=== PATIENT | female | born 1955 | race Caucasian/White ===

== ENCOUNTER 2021-01-23 13:34 | Inpatient (IN) ==
[2021-01-23] MEDS ORDERED: *HR* HYDROcodone/Acet 5/325 mg TABLET PO PRN (16:40)
[2021-01-23] MEDS ORDERED: *HR* OxyCODONE Immed Rel 5 MG TABLET PO PRN (16:40)
[2021-01-23] MEDS ORDERED: Acetaminophen 325 MG TABLET PO PRN (16:40)
[2021-01-23] MEDS ORDERED: Ondansetron 4 MG/2 ML VIAL IVP PRN (16:40)
[2021-01-23] MEDS ORDERED: Nicotine 2 MG GUM BC PRN (17:29)
[2021-01-23] MEDS: amLODIPine 5 MG TABLET PO SCH (17:44)
[2021-01-23] MEDS: Nicotine 21 MG PATCH.TD24 TD SCH (17:44)
[2021-01-23] MEDS: Piperacillin/Tazobactam 3.375 GM in 0.9 % Sodium Chloride Mini Bag 100 ML IVPB SCH (23:52)
[2021-01-24 02:58] LABS: Hematocrit 35.2 % (35.3-44.9); Hemoglobin 11.4 g/dL (11.5-15.4); Mean Corpuscular HGB Conc 32.4 g/dL (31.6-35.5); Mean Corpuscular Hemoglobin 29.2 pg (28.0-33.3); Mean Platelet Volume 10.8 fL (9.4-12.4); Platelet Count 217 K/mcL (140-400); Red Blood Count 3.91 M/mcL (3.82-4.97); Red Cell Distribution Width 13.5 % (11.5-14.5); White Blood Count 9.3 K/mcL (4.3-11.1)
[2021-01-24 03:22] LABS: BUN/Creatinine Ratio 12 (6-26); Blood Urea Nitrogen 11 mg/dL (8-23); Calcium 8.3 mg/dL (8.6-10.3); Carbon Dioxide 25 mEq/L (23-29); Chloride 104 mEq/L (98-107); Glucose 90 mg/dL (70-105); Osmolality,Calculated 281 (280-300); Potassium 4.1 mEq/L (3.5-5.1); Sodium 136 mEq/L (136-145); eGFR For African Americans > 60 (> 60); eGFR For Non-African Americans > 60 (> 60)
[2021-01-24] MEDS ORDERED: Ringers Solution, Lactated 1,000 ML IVC SCH (08:00)
[2021-01-24] MEDS: amLODIPine 5 MG TABLET PO SCH (09:13)
[2021-01-24] MEDS: Piperacillin/Tazobactam 3.375 GM in 0.9 % Sodium Chloride Mini Bag 100 ML IVPB SCH ×2 (09:13→16:46)
[2021-01-24] MEDS: Nicotine 21 MG PATCH.TD24 TD SCH ×2 (09:14→16:47)
[2021-01-24] MEDS ORDERED: Piperacillin/Tazobactam 3.375 GM VIAL ONE (22:49)
[2021-01-25] MEDS: Piperacillin/Tazobactam 3.375 GM in 0.9 % Sodium Chloride Mini Bag 100 ML IVPB SCH (00:03)
[2021-01-25 01:08] LABS: Basophils # 0.1 K/mcL (0.0-0.2); Basophils % 0.8 %; Eosinophils # 0.4 K/mcL (0.0-0.6); Eosinophils % 5.1 %; Hematocrit 35.5 % (35.3-44.9); Hemoglobin 11.6 g/dL (11.5-15.4); Immature Granulocytes % 0.3 % (0-4); Lymphocytes # 2.3 K/mcL (0.6-4.6); Lymphocytes % 29.4 %; Mean Corpuscular HGB Conc 32.7 g/dL (31.6-35.5); Mean Corpuscular Volume 88.8 fL (83.0-100.0); Mean Platelet Volume 10.9 fL (9.4-12.4); Monocytes # 0.5 K/mcL (0.0-1.3); Monocytes % 6.3 %; Neutrophils # 4.6 K/mcL (1.6-8.9); Platelet Count 225 K/mcL (140-400); Red Cell Distribution Width 13.3 % (11.5-14.5); Segmented Neutrophils % 58.1 %; White Blood Count 7.9 K/mcL (4.3-11.1)
[2021-01-25 01:23] LABS: Alanine Aminotransferase 12 Units/L (7-52); Albumin 3.7 g/dL (3.5-5.7); Albumin/Globulin Ratio 1.2 (1.1-2.2); Alkaline Phosphatase 72 Units/L (34-104); Aspartate Amino Transferase 12 Units/L (13-39); BUN/Creatinine Ratio 9 (6-26); Bilirubin,Direct 0.1 mg/dL (0.0-0.2); Bilirubin,Indirect 0.2 mg/dL (0.0-1.0); Bilirubin,Total 0.3 mg/dL (0.3-1.0); Blood Urea Nitrogen 9 mg/dL (8-23); Calcium 8.5 mg/dL (8.6-10.3); Carbon Dioxide 26 mEq/L (23-29); Chloride 103 mEq/L (98-107); Globulin 3.2 g/dL (2.4-3.5); Glucose 131 mg/dL (70-105); Osmolality,Calculated 286 (280-300); Potassium 3.6 mEq/L (3.5-5.1); Sodium 138 mEq/L (136-145); Total Protein 6.9 g/dL (6.4-8.9); eGFR For African Americans > 60 (> 60); eGFR For Non-African Americans 58 (> 60)
[2021-01-25] MEDS: metroNIDAZOLE 500 MG TABLET PO SCH ×3 (13:46→20:58)
[2021-01-26 07:20] VITALS: BP 142/63
[2021-01-26] MEDS: Piperacillin/Tazobactam 3.375 GM in 0.9 % Sodium Chloride Mini Bag 100 ML IVPB SCH (07:21)
[2021-01-26] MEDS: metroNIDAZOLE 500 MG TABLET PO SCH (07:47)
[2021-01-26] MEDS: Nicotine 21 MG PATCH.TD24 TD SCH (07:47)
== END 2021-01-26 09:34 | disposition home or self-care (01) | DRG 720 ==
LOC: 3ANU → SUATTDRO 15:52
PROVIDERS: ADMIT General Practice; ATTEND Internal Medicine

== ENCOUNTER 2021-03-21 15:59 | Inpatient (IN) ==
[2021-03-21] MEDS ORDERED: Ondansetron ODT 4 MG TAB.RAPDIS SL PRN (18:55)
[2021-03-21] MEDS ORDERED: Naloxone 0.4 MG/ML INJ IVP PRN (18:55)
[2021-03-21] MEDS ORDERED: Acetaminophen 325 MG TABLET PO PRN (18:55)
[2021-03-21] MEDS ORDERED: *HR* Heparin 5,000 UNIT/ML VIAL IVP PRN ×2 (18:58)
[2021-03-21] MEDS ORDERED: *HR* Heparin 5,000 UNIT/ML VIAL IVP ONE (18:58)
[2021-03-21 19:35] LABS: Hematocrit 37.3 % (35.3-44.9); Hemoglobin 12.1 g/dL (11.5-15.4); Mean Corpuscular HGB Conc 32.4 g/dL (31.6-35.5); Mean Corpuscular Hemoglobin 29.4 pg (28.0-33.3); Mean Corpuscular Volume 90.8 fL (83.0-100.0); Mean Platelet Volume 11.3 fL (9.4-12.4); Platelet Count 198 K/mcL (140-400); Red Blood Count 4.11 M/mcL (3.82-4.97); Red Cell Distribution Width 14.3 % (11.5-14.5); White Blood Count 12.2 K/mcL (4.3-11.1)
[2021-03-21 19:49] LABS: INR 1.3; Prothrombin Time 14.4 Seconds (9.4-12.1)
[2021-03-21] MEDS: Heparin 25,000UNIT/250ML 1/2NS 25,000 UNIT/250 ML IV.SOLN IVC SCH (20:38)
[2021-03-22] MEDS ORDERED: Perflutren Lipid Microsphere 1.3 ML in 0.9 % Sodium Chloride 8.7 ML IVP PRN (00:09)
[2021-03-22] MEDS ORDERED: Nitroglycerin 0.4 MG TAB.SUBL SL PRN (00:27)
[2021-03-22 02:07] LABS: Hematocrit 37.8 % (35.3-44.9); Hemoglobin 12.2 g/dL (11.5-15.4); Mean Corpuscular HGB Conc 32.3 g/dL (31.6-35.5); Mean Corpuscular Hemoglobin 29.1 pg (28.0-33.3); Mean Corpuscular Volume 90.2 fL (83.0-100.0); Mean Platelet Volume 11.3 fL (9.4-12.4); Platelet Count 196 K/mcL (140-400); Red Blood Count 4.19 M/mcL (3.82-4.97); Red Cell Distribution Width 14.4 % (11.5-14.5); White Blood Count 11.7 K/mcL (4.3-11.1)
[2021-03-22 02:15] LABS: INR 1.2; Prothrombin Time 13.5 Seconds (9.4-12.1)
[2021-03-22 02:24] LABS: BUN/Creatinine Ratio 19 (6-26); Blood Urea Nitrogen 13 mg/dL (8-23); Calcium 8.7 mg/dL (8.6-10.3); Carbon Dioxide 25 mEq/L (23-29); Chloride 108 mEq/L (98-107); Chol/HDL Ratio 4.1 (0-4.9); Glucose 96 mg/dL (70-105); Osmolality,Calculated 288 (280-300); Sodium 139 mEq/L (136-145); eGFR For African Americans > 60 (> 60); eGFR For Non-African Americans > 60 (> 60)
[2021-03-22 07:58] LABS: Estimated Average Glucose 128 mg/dl; Hemoglobin A1C 6.1 %
[2021-03-22] MEDS: lisinopriL 5 MG TABLET PO SCH (08:25)
[2021-03-22] MEDS: Aspirin 81 MG TAB.CHEW PO SCH (08:31)
[2021-03-22] MEDS ORDERED: *HR* Heparin 10,000 UNIT/10 ML VIAL ONE (13:19)
[2021-03-22] MEDS ORDERED: Heparin 1,000 UNITS/500 mL 500 ML ONE (13:19)
[2021-03-22] MEDS ORDERED: 0.9 % Sodium Chloride 1,000 ML ONE ×2 (13:19→13:21)
[2021-03-22] MEDS ORDERED: Nitroglycerin 1,000 MCG/5 ML VIAL IV ONE (13:20)
[2021-03-22] MEDS ORDERED: ISOVUE-370 200 ML INFUS..BTL ONE (13:20)
[2021-03-22] MEDS ORDERED: *HR* FentaNYL (PF) 100 MCG/2 ML VIAL ONE (13:32)
[2021-03-22] MEDS ORDERED: *HR* Midazolam HCl 2 MG/2 ML VIAL ONE (13:32)
[2021-03-23] MEDS: Heparin 25,000UNIT/250ML 1/2NS 25,000 UNIT/250 ML IV.SOLN IVC SCH (04:05)
[2021-03-23 06:58] LABS: Basophils # 0.1 K/mcL (0.0-0.2); Basophils % 0.8 %; Eosinophils # 0.5 K/mcL (0.0-0.6); Eosinophils % 5.7 %; Hemoglobin 12.2 g/dL (11.5-15.4); Immature Granulocytes % 0.1 % (0-4); Lymphocytes # 4.4 K/mcL (0.6-4.6); Lymphocytes % 50.8 %; Mean Corpuscular HGB Conc 31.3 g/dL (31.6-35.5); Mean Corpuscular Hemoglobin 28.9 pg (28.0-33.3); Mean Corpuscular Volume 92.4 fL (83.0-100.0); Mean Platelet Volume 11.5 fL (9.4-12.4); Monocytes # 0.4 K/mcL (0.0-1.3); Monocytes % 4.8 %; Neutrophils # 3.3 K/mcL (1.6-8.9); Platelet Count 192 K/mcL (140-400); Red Blood Count 4.22 M/mcL (3.82-4.97); Red Cell Distribution Width 14.5 % (11.5-14.5); Segmented Neutrophils % 37.8 %; White Blood Count 8.6 K/mcL (4.3-11.1)
[2021-03-23 07:15] LABS: BUN/Creatinine Ratio 18 (6-26); Blood Urea Nitrogen 13 mg/dL (8-23); Calcium 8.8 mg/dL (8.6-10.3); Carbon Dioxide 25 mEq/L (23-29); Chloride 107 mEq/L (98-107); Glucose 102 mg/dL (70-105); Magnesium 1.9 mg/dL (1.6-2.6); Osmolality,Calculated 290 (280-300); Phosphorous 3.9 mg/dL (2.7-4.5); Sodium 140 mEq/L (136-145); eGFR For African Americans > 60 (> 60); eGFR For Non-African Americans > 60 (> 60)
[2021-03-23 07:25] LABS: Platelet Estimate Normal (Normal); Reactive Lymphocytes Present (Not Present)
[2021-03-23] MEDS: lisinopriL 5 MG TABLET PO SCH (08:12)
[2021-03-23] MEDS: Aspirin 81 MG TAB.CHEW PO SCH (08:13)
[2021-03-23] MEDS: Nicotine 21 MG PATCH.TD24 TD SCH (11:51)
[2021-03-24] MEDS: Aspirin 81 MG TAB.CHEW PO SCH (07:39)
[2021-03-24] MEDS: Nicotine 21 MG PATCH.TD24 TD SCH (07:39)
[2021-03-24] MEDS: lisinopriL 5 MG TABLET PO SCH (07:39)
[2021-03-24] MEDS: Heparin 25,000UNIT/250ML 1/2NS 25,000 UNIT/250 ML IV.SOLN IVC SCH (10:00)
[2021-03-25] MEDS: lisinopriL 5 MG TABLET PO SCH (08:10)
[2021-03-25] MEDS: Nicotine 21 MG PATCH.TD24 TD SCH (08:10)
[2021-03-25] MEDS: Aspirin 81 MG TAB.CHEW PO SCH (08:10)
[2021-03-25] MEDS: Heparin 25,000UNIT/250ML 1/2NS 25,000 UNIT/250 ML IV.SOLN IVC SCH ×2 (15:32→19:24)
[2021-03-26 05:25] LABS: Hematocrit 36.9 % (35.3-44.9); Hemoglobin 12.1 g/dL (11.5-15.4); Mean Corpuscular HGB Conc 32.8 g/dL (31.6-35.5); Mean Corpuscular Hemoglobin 30.2 pg (28.0-33.3); Mean Platelet Volume 12.2 fL (9.4-12.4); Platelet Count 194 K/mcL (140-400); Red Blood Count 4.01 M/mcL (3.82-4.97); Red Cell Distribution Width 14.3 % (11.5-14.5); White Blood Count 10.2 K/mcL (4.3-11.1)
[2021-03-26 05:48] LABS: Alanine Aminotransferase 22 Units/L (7-52); Albumin 3.8 g/dL (3.5-5.7); Albumin/Globulin Ratio 1.4 (1.1-2.2); Alkaline Phosphatase 83 Units/L (34-104); Aspartate Amino Transferase 21 Units/L (13-39); BUN/Creatinine Ratio 13 (6-26); Bilirubin,Total 0.2 mg/dL (0.3-1.0); Blood Urea Nitrogen 12 mg/dL (8-23); Calcium 9.1 mg/dL (8.6-10.3); Carbon Dioxide 29 mEq/L (23-29); Chloride 105 mEq/L (98-107); Globulin 2.7 g/dL (2.4-3.5); Glucose 119 mg/dL (70-105); Osmolality,Calculated 291 (280-300); Potassium 4.8 mEq/L (3.5-5.1); Sodium 140 mEq/L (136-145); Total Protein 6.5 g/dL (6.4-8.9); eGFR For African Americans > 60 (> 60); eGFR For Non-African Americans > 60 (> 60)
[2021-03-26] MEDS: lisinopriL 5 MG TABLET PO SCH (09:29)
[2021-03-26] MEDS: Aspirin 81 MG TAB.CHEW PO SCH (09:29)
[2021-03-26] MEDS: Nicotine 21 MG PATCH.TD24 TD SCH (09:29)
[2021-03-26] MEDS ORDERED: lisinopriL 5 MG TABLET PO ONE (12:54)
[2021-03-26] MEDS: Chlorhexidine Rinse 15 ML MOUTHWASH MM SCH (19:56)
[2021-03-26 20:59] LABS: Influenza A PCR Negative (Negative); Influenza B PCR Negative (Negative); Resp. Syncytial Virus PCR Negative (Negative)
[2021-03-26 21:50] LABS: SARS-CoV-2 by PCR (In House) Negative (Negative)
[2021-03-27] MEDS: Heparin 25,000UNIT/250ML 1/2NS 25,000 UNIT/250 ML IV.SOLN IVC SCH (01:09)
[2021-03-27] MEDS ORDERED: Aspirin 81 MG TAB.CHEW PO ONE (06:00)
[2021-03-27] MEDS ORDERED: CeFAZolin Syr 2,000MG/20 ML 2,000 MG/20 ML SYRINGE IVPB ONE (07:00)
[2021-03-27] MEDS: Aspirin 81 MG TAB.CHEW PO SCH (07:40)
[2021-03-27] MEDS: Nicotine 21 MG PATCH.TD24 TD SCH (07:40)
[2021-03-27] MEDS: lisinopriL 20 MG TABLET PO SCH (07:40)
[2021-03-27] MEDS: Chlorhexidine Rinse 15 ML MOUTHWASH MM SCH ×2 (09:27→19:52)
[2021-03-27 13:16] LABS: Bilirubin,Urine Negative (Negative); Blood,Urine Negative (Negative); Clarity,Urine Clear (Clear); Color,Urine Colorless (Yellow); Glucose,Urine (UA) Normal (Normal); Ketones,Urine Negative (Negative); Leukocyte Esterase,Urine Negative (Negative); Nitrite,Urine Negative (Negative); PH,Urine 6.5 pH Units (5.0-8.0); Protein,Urine Negative (Neg-Trace); Specific Gravity,Urine 1.006 (1.010-1.025); Urobilinogen,Urine Normal (Normal)
[2021-03-28] MEDS: Heparin 25,000UNIT/250ML 1/2NS 25,000 UNIT/250 ML IV.SOLN IVC SCH (02:28)
[2021-03-28] MEDS ORDERED: Aspirin 81 MG TAB.CHEW PO ONE (06:00)
[2021-03-28] MEDS ORDERED: *HR* Midazolam HCl 5 MG/5 ML VIAL IVP ONE (06:49)
[2021-03-28] MEDS ORDERED: *HR* FentaNYL (PF) 1,000 MCG/20 ML VIAL ONE (06:49)
[2021-03-28] MEDS ORDERED: *HR* Propofol 200 MG/20 ML VIAL IVP ONE (06:49)
[2021-03-28] MEDS ORDERED: Papaverine 60 MG/2 ML VIAL IVP ONE (06:50)
[2021-03-28] MEDS ORDERED: *HR* Magnesium Sulfate 1 GM/2 ML VIAL ONE (06:50)
[2021-03-28] MEDS ORDERED: *HR* Rocuronium Bromide 50 MG/5 ML VIAL ONE ×2 (06:50→09:31)
[2021-03-28] MEDS ORDERED: Famotidine 20 MG/2 ML VIAL ONE (06:50)
[2021-03-28] MEDS ORDERED: Tranexamic Acid 1,000 MG/10 ML VIAL ONE (06:53)
[2021-03-28] MEDS ORDERED: CeFAZolin Syr 2,000MG/20 ML 2,000 MG/20 ML SYRINGE IVPB ONE (07:00)
[2021-03-28] MEDS ORDERED: Lidocaine 2% Syringe 100 MG/5 ML ONE (07:05)
[2021-03-28] MEDS ORDERED: Norepinephrine 4 MG in 0.9 % Sodium Chloride 250 ML IVC PRN (07:45)
[2021-03-28] MEDS ORDERED: Dextrose 50 % in Water (Vial) 30 ML, Sodium Bicarbonate 20 MEQ, Potassium Chloride 15 M... TH ONE (07:45)
[2021-03-28] MEDS ORDERED: Heparin 15,000 UNIT in 0.9 % Sodium Chloride 500 ML IV ONE (07:45)
[2021-03-28] MEDS ORDERED: Dextrose 50 % in Water (Vial) 30 ML, Sodium Bicarbonate 20 MEQ, Lidocaine 1% 5 ML, Insu... TH ONE ×3 (07:45)
[2021-03-28 08:10] LABS: ABG Base Excess 0 mEq/L (-2 to 3); ABG Chloride 103 mEq/L (98-107); ABG Glucose 106 mg/dL (60-95); ABG HCO3 28 mEq/L (21-27); ABG Ionized Calcium 1.14 mmol/L (1.15-1.35); ABG Oxygen Saturation 100 % (95-98); ABG PCO2 59 mmHg (35-45); ABG PH 7.27 pH Units (7.32-7.45); ABG PO2 225 mmHg (85-104); ABG TCO2 29 mEq/L (20-26)
[2021-03-28 09:26] LABS: ABG Base Excess -1 mEq/L (-2 to 3); ABG Chloride 105 mEq/L (98-107); ABG Glucose 110 mg/dL (60-95); ABG HCO3 24 mEq/L (21-27); ABG Ionized Calcium 1.09 mmol/L (1.15-1.35); ABG Oxygen Saturation 100 % (95-98); ABG PCO2 39 mmHg (35-45); ABG PO2 284 mmHg (85-104); ABG TCO2 25 mEq/L (20-26)
[2021-03-28] MEDS ORDERED: D5% in Water 250 ML IV BAG IV ONE (10:11)
[2021-03-28] MEDS ORDERED: Lidocaine 2% Syringe 100 MG/5 ML IVP ONE (10:11)
[2021-03-28] MEDS ORDERED: *HR* Phenylephrine 10 MG/ML VIAL IVC ONE (10:11)
[2021-03-28] MEDS ORDERED: Heparin 1,000 UNITS/500 mL IV.SOLN IR ONE (10:11)
[2021-03-28] MEDS ORDERED: *HR* Magnesium Sulfate 2 GM/50 ML PIGGYBACK IVPB ONE (10:11)
[2021-03-28] MEDS ORDERED: *HR* Heparin 10,000 UNIT/10 ML VIAL IR ONE (10:11)
[2021-03-28] MEDS ORDERED: Mannitol 25% vial 12.5 GM/50 ML VIAL IVPB ONE (10:11)
[2021-03-28] MEDS ORDERED: Tranexamic Acid 1,000 MG/10 ML VIAL IR ONE (10:11)
[2021-03-28] MEDS ORDERED: Albumin Human 25% 25 GM/100 ML IV.SOLN IVPB ONE (10:11)
[2021-03-28] MEDS ORDERED: Calcium Gluconate 1,000 MG/10 ML VIAL ONE ×2 (10:51→10:57)
[2021-03-28] MEDS ORDERED: Protamine Sulfate 250 MG/25 ML VIAL IVP ONE (10:51)
[2021-03-28] MEDS ORDERED: Albumin Human 5% 12.5 GM/250 ML IV.SOLN ONE (11:00)
[2021-03-28 11:49] LABS: ABG Base Excess -3 mEq/L (-2 to 3); ABG Chloride 102 mEq/L (98-107); ABG Glucose 155 mg/dL (60-95); ABG HCO3 21 mEq/L (21-27); ABG Ionized Calcium 1.26 mmol/L (1.15-1.35); ABG Oxygen Saturation 100 % (95-98); ABG PCO2 34 mmHg (35-45); ABG PO2 475 mmHg (85-104); ABG TCO2 22 mEq/L (20-26)
[2021-03-28] MEDS ORDERED: Albumin Human 5% 50.0 GM/1,000 ML IV.SOLN ONE (12:02)
[2021-03-28] MEDS ORDERED: *HR* Dextrose 50 % in Water (Vial) 50 ML VIAL IVP PRN (12:25)
[2021-03-28] MEDS ORDERED: *HR* Promethazine 25 MG/ML VIAL IM PRN (12:25)
[2021-03-28] MEDS ORDERED: Sennosides 8.6 MG TABLET PO PRN (12:25)
[2021-03-28] MEDS ORDERED: Ondansetron 4 MG/2 ML VIAL IVP PRN (12:25)
[2021-03-28] MEDS ORDERED: Potassium Chloride 40 MEQ/200 ML BAG IVPB PRN (12:25)
[2021-03-28] MEDS: Norepinephrine 4 MG/254 ML IV.SOLN IVC SCH (12:30)
[2021-03-28] MEDS ORDERED: niCARdipine 20 MG/200 ML MLS IVC ONE (12:31)
[2021-03-28] MEDS: Albumin Human 5% 12.5 GM/250 ML IV.SOLN IVPB PRN ×2 (12:45→13:10)
[2021-03-28 12:57] LABS: ABG Base Excess 1 mEq/L (-2 to 3); ABG HCO3 27 mEq/L (21-27); ABG Oxygen Saturation 99 % (95-98); ABG PCO2 49 mmHg (35-45); ABG PH 7.36 pH Units (7.32-7.45); ABG PO2 136 mmHg (85-104); ABG TCO2 29 mEq/L (20-26); Blood Gas VT 500 cc
[2021-03-28 13:13] LABS: Basophils # 0.1 K/mcL (0.0-0.2); Basophils % 0.4 %; Eosinophils # 0.3 K/mcL (0.0-0.6); Eosinophils % 1.5 %; Hematocrit 33.9 % (35.3-44.9); Immature Granulocytes % 0.8 % (0-4); Immature Platelets 8.3 % (1.1-6.1); Lymphocytes # 1.9 K/mcL (0.6-4.6); Lymphocytes % 10.9 %; Mean Corpuscular HGB Conc 32.4 g/dL (31.6-35.5); Mean Corpuscular Hemoglobin 29.6 pg (28.0-33.3); Mean Corpuscular Volume 91.4 fL (83.0-100.0); Mean Platelet Volume 11.1 fL (9.4-12.4); Monocytes # 0.6 K/mcL (0.0-1.3); Monocytes % 3.7 %; Platelet Count 102 K/mcL (140-400); Red Blood Count 3.71 M/mcL (3.82-4.97); Segmented Neutrophils % 82.7 %; White Blood Count 17.1 K/mcL (4.3-11.1)
[2021-03-28 13:19] LABS: INR 1.4; Prothrombin Time 15.8 Seconds (9.4-12.1)
[2021-03-28 13:21] LABS: Activated Partial Thrombo Time 24.8 Seconds (26.0-36.0); Neutrophils # 14.1 K/mcL (1.6-8.9)
[2021-03-28 13:27] LABS: BUN/Creatinine Ratio 14 (6-26); Blood Urea Nitrogen 14 mg/dL (8-23); Calcium 8.8 mg/dL (8.6-10.3); Carbon Dioxide 28 mEq/L (23-29); Chloride 106 mEq/L (98-107); Glucose 122 mg/dL (70-105); Magnesium 3.4 mg/dL (1.6-2.6); Osmolality,Calculated 290 (280-300); Potassium 4.4 mEq/L (3.5-5.1); Sodium 139 mEq/L (136-145); eGFR For African Americans > 60 (> 60); eGFR For Non-African Americans 58 (> 60)
[2021-03-28] MEDS: 0.9 % Sodium Chloride 1,000 ML IVC SCH (14:00)
[2021-03-28] MEDS: *HR* OxyCODONE/APAP 5/325 TABLET PO PRN ×2 (14:00→20:23)
[2021-03-28] MEDS: Aspirin 81 MG TAB.CHEW PO SCH (14:12)
[2021-03-28] MEDS: Nicotine 21 MG PATCH.TD24 TD SCH (14:12)
[2021-03-28] MEDS: lisinopriL 20 MG TABLET PO SCH (14:13)
[2021-03-28] MEDS: *HR* FentaNYL (PF) 100 MCG/2 ML VIAL IVP PRN ×3 (14:31→22:13)
[2021-03-28] MEDS: niCARdipine 20 MG/200 ML MLS IVC SCH ×3 (14:39→20:19)
[2021-03-28] MEDS: CeFAZolin 2 GM/120 ML BAG IVPB SCH ×2 (15:36→23:19)
[2021-03-28 15:55] LABS: ABG Base Excess 1 mEq/L (-2 to 3); ABG HCO3 29 mEq/L (21-27); ABG Oxygen Saturation 92 % (95-98); ABG PCO2 68 mmHg (35-45); ABG PH 7.24 pH Units (7.32-7.45); ABG PO2 77 mmHg (85-104); ABG TCO2 31 mEq/L (20-26); Blood Gas Modality CPAP/PS; Blood Gas Pressure Support 8 cm H2O
[2021-03-28] MEDS: Insulin Regular, Human 100 UNIT/ML IV PRN ×2 (16:03→18:00)
[2021-03-28] MEDS ORDERED: Amiodarone Premix 150 MG/100 ML BAG IVPB ONE ×2 (17:16→17:23)
[2021-03-28] MEDS ORDERED: Amiodarone Premix 360 MG/200 ML BAG IVC ONE ×2 (17:16→17:23)
[2021-03-28 17:29] LABS: ABG Base Excess -1 mEq/L (-2 to 3); ABG HCO3 28 mEq/L (21-27); ABG Oxygen Saturation 93 % (95-98); ABG PCO2 64 mmHg (35-45); ABG PH 7.25 pH Units (7.32-7.45); ABG PO2 81 mmHg (85-104); ABG TCO2 30 mEq/L (20-26); Blood Gas Modality CPAP/PS; Blood Gas Pressure Support 8 cm H2O
[2021-03-28] MEDS: Dexmedetomidine HCl 400 MCG/100 ML MLS IVC SCH (17:59)
[2021-03-28] MEDS ORDERED: Furosemide 20 MG/2 ML VIAL IVP ONE (19:20)
[2021-03-28 20:12] LABS: ABG Base Excess -1 mEq/L (-2 to 3); ABG HCO3 24 mEq/L (21-27); ABG Oxygen Saturation 98 % (95-98); ABG PCO2 38 mmHg (35-45); ABG PH 7.41 pH Units (7.32-7.45); ABG PO2 111 mmHg (85-104); ABG TCO2 25 mEq/L (20-26); Blood Gas Modality ASSIST CONTROL; Blood Gas VT 450 cc
[2021-03-28] MEDS: Chlorhexidine Rinse 15 ML MOUTHWASH MM SCH ×2 (20:22→20:23)
[2021-03-28] MEDS: Amiodarone Premix 360 MG/200 ML BAG IVC SCH (23:19)
[2021-03-29] MEDS: *HR* FentaNYL (PF) 100 MCG/2 ML VIAL IVP PRN (00:37)
[2021-03-29] MEDS: *HR* OxyCODONE/APAP 5/325 TABLET PO PRN ×5 (00:39→20:57)
[2021-03-29 00:46] LABS: ABG Base Excess -1 mEq/L (-2 to 3); ABG HCO3 24 mEq/L (21-27); ABG Oxygen Saturation 97 % (95-98); ABG PCO2 38 mmHg (35-45); ABG PH 7.41 pH Units (7.32-7.45); ABG PO2 91 mmHg (85-104); ABG TCO2 25 mEq/L (20-26); Blood Gas Modality ASSIST CONTROL; Blood Gas VT 400 cc
[2021-03-29] MEDS: Albumin Human 5% 12.5 GM/250 ML IV.SOLN IVPB PRN ×2 (00:46→01:01)
[2021-03-29] MEDS: niCARdipine 20 MG/200 ML MLS IVC SCH ×7 (00:47→22:49)
[2021-03-29] MEDS: 0.9 % Sodium Chloride 1,000 ML IVC SCH (02:08)
[2021-03-29 04:21] LABS: ABG Base Excess 2 mEq/L (-2 to 3); ABG HCO3 24 mEq/L (21-27); ABG Oxygen Saturation 97 % (95-98); ABG PCO2 28 mmHg (35-45); ABG PH 7.54 pH Units (7.32-7.45); ABG PO2 79 mmHg (85-104); ABG TCO2 25 mEq/L (20-26); Blood Gas Modality ASSIST CONTROL; Blood Gas VT 450 cc
[2021-03-29 04:51] LABS: Basophils % 0.2 %; Hemoglobin 11.2 g/dL (11.5-15.4); Mean Corpuscular Volume 88.6 fL (83.0-100.0); Mean Platelet Volume 12.1 fL (9.4-12.4); Red Cell Distribution Width 14.6 % (11.5-14.5)
[2021-03-29 04:53] LABS: Eosinophils % 0.1 %; Hematocrit 32.6 % (35.3-44.9); Immature Granulocytes % 0.6 % (0-4); Immature Platelets 8.8 % (1.1-6.1); Lymphocytes % 14.4 %; Mean Corpuscular HGB Conc 34.4 g/dL (31.6-35.5); Mean Corpuscular Hemoglobin 30.4 pg (28.0-33.3); Monocytes # 0.9 K/mcL (0.0-1.3); Monocytes % 6.4 %; Neutrophils # 10.9 K/mcL (1.6-8.9); Platelet Count 104 K/mcL (140-400); Red Blood Count 3.68 M/mcL (3.82-4.97); Segmented Neutrophils % 78.3 %; White Blood Count 13.9 K/mcL (4.3-11.1)
[2021-03-29 05:16] LABS: BUN/Creatinine Ratio 18 (6-26); Blood Urea Nitrogen 16 mg/dL (8-23); Calcium 8.2 mg/dL (8.6-10.3); Carbon Dioxide 21 mEq/L (23-29); Chloride 107 mEq/L (98-107); Glucose 156 mg/dL (70-105); Osmolality,Calculated 290 (280-300); Potassium 4.2 mEq/L (3.5-5.1); Sodium 138 mEq/L (136-145); eGFR For African Americans > 60 (> 60); eGFR For Non-African Americans > 60 (> 60)
[2021-03-29] MEDS: Amiodarone Premix 360 MG/200 ML BAG IVC SCH ×2 (05:50→19:01)
[2021-03-29 06:37] LABS: ABG Base Excess -1 mEq/L (-2 to 3); ABG HCO3 24 mEq/L (21-27); ABG Oxygen Saturation 92 % (95-98); ABG PCO2 40 mmHg (35-45); ABG PH 7.38 pH Units (7.32-7.45); ABG PO2 64 mmHg (85-104); ABG TCO2 25 mEq/L (20-26); Blood Gas Modality CPAP/PS; Blood Gas Pressure Support 8 cm H2O
[2021-03-29] MEDS: Aspirin 81 MG TAB.CHEW PO SCH (09:09)
[2021-03-29] MEDS: Pantoprazole 40 MG VIAL IVP SCH (09:09)
[2021-03-29] MEDS: Chlorhexidine Rinse 15 ML MOUTHWASH MM SCH ×2 (09:09→21:05)
[2021-03-29] MEDS: Nicotine 21 MG PATCH.TD24 TD SCH (09:09)
[2021-03-29] MEDS: Norepinephrine 4 MG/254 ML IV.SOLN IVC SCH (11:55)
[2021-03-29] MEDS: Dexmedetomidine HCl 400 MCG/100 ML MLS IVC SCH (16:05)
[2021-03-30 05:00] LABS: Segmented Neutrophils % 72.8 %
[2021-03-30 05:02] LABS: Basophils % 0.3 %; Eosinophils % 0.3 %; Hematocrit 31.7 % (35.3-44.9); Immature Granulocytes % 0.3 % (0-4); Immature Platelets 12.9 % (1.1-6.1); Lymphocytes # 2.9 K/mcL (0.6-4.6); Lymphocytes % 19.9 %; Mean Corpuscular HGB Conc 31.5 g/dL (31.6-35.5); Mean Corpuscular Hemoglobin 29.8 pg (28.0-33.3); Mean Corpuscular Volume 94.3 fL (83.0-100.0); Mean Platelet Volume 12.1 fL (9.4-12.4); Monocytes # 0.9 K/mcL (0.0-1.3); Monocytes % 6.4 %; Platelet Count 101 K/mcL (140-400); Red Blood Count 3.36 M/mcL (3.82-4.97); Red Cell Distribution Width 15.5 % (11.5-14.5); White Blood Count 14.6 K/mcL (4.3-11.1)
[2021-03-30 05:10] LABS: Neutrophils # 10.6 K/mcL (1.6-8.9)
[2021-03-30 05:20] LABS: BUN/Creatinine Ratio 21 (6-26); Blood Urea Nitrogen 21 mg/dL (8-23); Calcium 8.3 mg/dL (8.6-10.3); Carbon Dioxide 28 mEq/L (23-29); Chloride 103 mEq/L (98-107); Glucose 149 mg/dL (70-105); Osmolality,Calculated 290 (280-300); Potassium 4.4 mEq/L (3.5-5.1); Sodium 137 mEq/L (136-145); eGFR For African Americans > 60 (> 60); eGFR For Non-African Americans 56 (> 60)
[2021-03-30] MEDS: niCARdipine 20 MG/200 ML MLS IVC SCH ×2 (06:08→08:34)
[2021-03-30] MEDS: Amiodarone Premix 360 MG/200 ML BAG IVC SCH ×2 (06:11→07:28)
[2021-03-30] MEDS: Nicotine 21 MG PATCH.TD24 TD SCH ×2 (08:18→09:54)
[2021-03-30] MEDS: Pantoprazole 40 MG VIAL IVP SCH ×2 (08:18→09:54)
[2021-03-30] MEDS: Aspirin 81 MG TAB.CHEW PO SCH ×2 (08:18→09:52)
[2021-03-30] MEDS: *HR* OxyCODONE/APAP 5/325 TABLET PO PRN ×2 (08:18→23:39)
[2021-03-30] MEDS: Chlorhexidine Rinse 15 ML MOUTHWASH MM SCH ×3 (08:18→20:20)
[2021-03-30] MEDS ORDERED: Nitroglycerin 0.4 MG TAB.SUBL SL PRN (08:39)
[2021-03-30] MEDS ORDERED: Dextrose Gel 15 GM/37.5 ML TUBE PO PRN ×2 (08:39)
[2021-03-30] MEDS ORDERED: Naloxone 0.4 MG/ML INJ IVP PRN (08:39)
[2021-03-30] MEDS ORDERED: D5% in Water 1,000 ML IVC PRN (08:39)
[2021-03-30] MEDS ORDERED: *HR* Dextrose 50 % in Water (Vial) 50 ML VIAL IVP PRN (08:39)
[2021-03-30] MEDS ORDERED: Sennosides 8.6 MG TABLET PO PRN (08:39)
[2021-03-30] MEDS ORDERED: Acetaminophen 325 MG TABLET PO PRN (08:39)
[2021-03-30] MEDS ORDERED: *HR* Amiodarone 200 MG TABLET PO SCH (09:00)
[2021-03-30] MEDS: *HR* Amiodarone 200 MG TABLET PO SCH ×2 (09:53→20:20)
[2021-03-30] MEDS: Insulin LISPRO 300 UNITS/3 ML VIAL SUBQ SCH ×3 (13:24→20:08)
[2021-03-30] MEDS: Ondansetron 4 MG/2 ML VIAL IVP PRN (13:44)
[2021-03-30] MEDS: *HR* Promethazine 25 MG/ML VIAL IM PRN (17:49)
[2021-03-30] MEDS: *HR* Heparin 5,000 UNIT/ML VIAL SQ SCH (17:49)
[2021-03-31 03:40] LABS: Basophils # 0.1 K/mcL (0.0-0.2); Basophils % 0.4 %; Eosinophils # 0.3 K/mcL (0.0-0.6); Eosinophils % 2.1 %; Hematocrit 31.4 % (35.3-44.9); Hemoglobin 9.6 g/dL (11.5-15.4); Immature Granulocytes % 0.4 % (0-4); Lymphocytes # 2.6 K/mcL (0.6-4.6); Lymphocytes % 21.1 %; Mean Corpuscular HGB Conc 30.6 g/dL (31.6-35.5); Mean Corpuscular Hemoglobin 29.2 pg (28.0-33.3); Mean Corpuscular Volume 95.4 fL (83.0-100.0); Mean Platelet Volume 12.6 fL (9.4-12.4); Monocytes # 0.8 K/mcL (0.0-1.3); Monocytes % 6.4 %; Neutrophils # 8.7 K/mcL (1.6-8.9); Platelet Count 103 K/mcL (140-400); Red Blood Count 3.29 M/mcL (3.82-4.97); Red Cell Distribution Width 14.9 % (11.5-14.5); Segmented Neutrophils % 69.6 %; White Blood Count 12.4 K/mcL (4.3-11.1)
[2021-03-31 04:00] LABS: BUN/Creatinine Ratio 19 (6-26); Blood Urea Nitrogen 19 mg/dL (8-23); Calcium 8.1 mg/dL (8.6-10.3); Carbon Dioxide 23 mEq/L (23-29); Chloride 104 mEq/L (98-107); Glucose 106 mg/dL (70-105); Osmolality,Calculated 283 (280-300); Potassium 4.6 mEq/L (3.5-5.1); Sodium 135 mEq/L (136-145); eGFR For African Americans > 60 (> 60); eGFR For Non-African Americans 55 (> 60)
[2021-03-31] MEDS: *HR* Heparin 5,000 UNIT/ML VIAL SQ SCH ×2 (05:37→17:20)
[2021-03-31] MEDS: Nicotine 21 MG PATCH.TD24 TD SCH (08:38)
[2021-03-31] MEDS: Aspirin 81 MG TAB.CHEW PO SCH (08:39)
[2021-03-31] MEDS: Chlorhexidine Rinse 15 ML MOUTHWASH MM SCH ×2 (08:40→20:56)
[2021-03-31] MEDS: Insulin LISPRO 300 UNITS/3 ML VIAL SUBQ SCH ×4 (08:40→20:56)
[2021-03-31] MEDS: *HR* Amiodarone 200 MG TABLET PO SCH ×2 (08:40→20:56)
[2021-03-31] MEDS: Pantoprazole 40 MG VIAL IVP SCH (08:41)
[2021-03-31] MEDS: *HR* OxyCODONE/APAP 5/325 TABLET PO PRN (12:22)
[2021-03-31] MEDS: Ondansetron 4 MG/2 ML VIAL IVP PRN (12:24)
[2021-04-01 01:32] LABS: Basophils # 0.1 K/mcL (0.0-0.2); Basophils % 0.6 %; Eosinophils # 0.3 K/mcL (0.0-0.6); Eosinophils % 3.2 %; Hematocrit 30.3 % (35.3-44.9); Hemoglobin 9.7 g/dL (11.5-15.4); Immature Granulocytes % 0.3 % (0-4); Lymphocytes # 2.6 K/mcL (0.6-4.6); Lymphocytes % 24.3 %; Mean Corpuscular Volume 93.8 fL (83.0-100.0); Mean Platelet Volume 12.5 fL (9.4-12.4); Monocytes # 0.7 K/mcL (0.0-1.3); Monocytes % 6.2 %; Platelet Count 139 K/mcL (140-400); Red Blood Count 3.23 M/mcL (3.82-4.97); Red Cell Distribution Width 14.7 % (11.5-14.5); Segmented Neutrophils % 65.4 %; White Blood Count 10.8 K/mcL (4.3-11.1)
[2021-04-01 01:53] LABS: Calcium 8.1 mg/dL (8.6-10.3); Potassium 4.8 mEq/L (3.5-5.1)
[2021-04-01] MEDS: *HR* Heparin 5,000 UNIT/ML VIAL SQ SCH ×2 (05:51→17:29)
[2021-04-01] MEDS: Ondansetron 4 MG/2 ML VIAL IVP PRN ×2 (07:42→13:09)
[2021-04-01] MEDS: Chlorhexidine Rinse 15 ML MOUTHWASH MM SCH ×2 (07:42→20:12)
[2021-04-01] MEDS: Aspirin 81 MG TAB.CHEW PO SCH (07:43)
[2021-04-01] MEDS: Pantoprazole 40 MG VIAL IVP SCH (07:43)
[2021-04-01] MEDS: Nicotine 21 MG PATCH.TD24 TD SCH (07:44)
[2021-04-01] MEDS: *HR* Amiodarone 200 MG TABLET PO SCH ×2 (07:44→20:11)
[2021-04-01] MEDS: *HR* OxyCODONE/APAP 5/325 TABLET PO PRN ×2 (07:45→17:29)
[2021-04-01] MEDS: Insulin LISPRO 300 UNITS/3 ML VIAL SUBQ SCH ×4 (07:59→20:13)
[2021-04-01] MEDS: *HR* Promethazine 25 MG/ML VIAL IM PRN (15:13)
[2021-04-01] MEDS ORDERED: Furosemide 40 MG/4 ML VIAL IVP ONE (17:42)
[2021-04-02] MEDS: *HR* Heparin 5,000 UNIT/ML VIAL SQ SCH (05:01)
[2021-04-02 07:33] VITALS: BP 139/68
[2021-04-02] MEDS: *HR* Amiodarone 200 MG TABLET PO SCH (07:38)
[2021-04-02] MEDS: Aspirin 81 MG TAB.CHEW PO SCH (07:38)
[2021-04-02] MEDS: Nicotine 21 MG PATCH.TD24 TD SCH (07:39)
[2021-04-02] MEDS: Pantoprazole 40 MG VIAL IVP SCH (07:39)
[2021-04-02] MEDS: Chlorhexidine Rinse 15 ML MOUTHWASH MM SCH (07:39)
[2021-04-02] MEDS: Insulin LISPRO 300 UNITS/3 ML VIAL SUBQ SCH (07:46)
== END 2021-04-02 12:50 | disposition home health service (06) | DRG 165 ==
LOC: 3BNU → SUATTDRO 03-22 14:20 → ICNU 03-28 09:54 → 2NNU 03-30 17:17
PROVIDERS: ADMIT Internal Medicine; ATTEND Registered Nurse

== ENCOUNTER 2022-06-07 23:30 | Inpatient (IN) ==
[2022-06-07] MEDS ORDERED: cefTRIAXone 1,000 MG in 0.9 % Sodium Chloride 10 ML IVP ONE (23:46)
[2022-06-07] MEDS ORDERED: Azithromycin 500 MG in 0.9 % Sodium Chloride 250 ML IVPB ONE (23:46)
[2022-06-07] MEDS ORDERED: Ipratropium/Albuterol Neb 3 ML IH ONE (23:51)
[2022-06-08] MEDS: 0.9 % Sodium Chloride 1,000 ML IVC SCH ×3 (00:06→02:53)
[2022-06-08 00:15] LABS: Basophils # 0.1 K/mcL (0.0-0.2); Basophils % 0.6 %; Eosinophils % 0.4 %; Hematocrit 37.9 % (35.3-44.9); Hemoglobin 12.4 g/dL (11.5-15.4); Immature Granulocytes % 0.3 % (0-4); Lymphocytes # 0.8 K/mcL (0.6-4.6); Lymphocytes % 10.6 %; Mean Corpuscular HGB Conc 32.7 g/dL (31.6-35.5); Mean Corpuscular Hemoglobin 30.1 pg (28.0-33.3); Mean Platelet Volume 11.9 fL (9.4-12.4); Monocytes # 0.6 K/mcL (0.0-1.3); Monocytes % 7.2 %; Neutrophils # 6.4 K/mcL (1.6-8.9); Platelet Count 148 K/mcL (140-400); Red Blood Count 4.12 M/mcL (3.82-4.97); Red Cell Distribution Width 13.9 % (11.5-14.5); Segmented Neutrophils % 80.9 %; White Blood Count 7.9 K/mcL (4.3-11.1)
[2022-06-08 00:22] LABS: VBG HCO3 23 mEq/L (21-27); VBG PCO2 45 mmHg (41-51); VBG PH 7.32 pH Units (7.32-7.42); VBG PO2 52 mmHg (25-50)
[2022-06-08 00:24] LABS: INR 1.3; Prothrombin Time 14.8 Seconds (9.4-12.1)
[2022-06-08 00:27] LABS: Activated Partial Thrombo Time 25.4 Seconds (26.0-36.0)
[2022-06-08 00:49] LABS: Albumin/Globulin Ratio 1.2 (1.1-2.2); Bilirubin,Indirect 0.3 mg/dL (0.0-1.0); Bilirubin,Total 0.3 mg/dL (0.3-1.0); Calcium 7.9 mg/dL (8.6-10.3); Globulin 3.4 g/dL (2.4-3.5); Magnesium 1.6 mg/dL (1.6-2.6); Phosphorous 3.5 mg/dL (2.7-4.5); Potassium 4.2 mEq/L (3.5-5.1); Total Protein 7.4 g/dL (6.4-8.9); Troponin I 0.04 ng/mL (< 0.04)
[2022-06-08 01:03] LABS: Influenza A PCR Negative (Negative); Influenza B PCR Negative (Negative); Resp. Syncytial Virus PCR Negative (Negative)
[2022-06-08 01:17] LABS: SARS-CoV-2 by PCR (In House) Positive (Negative)
[2022-06-08] MEDS ORDERED: Iopamidol - 370 500 ML MLS IVP ONE (02:46)
[2022-06-08 03:39] LABS: Bilirubin,Urine Negative (Negative); Blood,Urine Negative (Negative); Clarity,Urine Clear (Clear); Color,Urine Light-Yellow (Yellow); Glucose,Urine (UA) Normal (Normal); Ketones,Urine Negative (Negative); Leukocyte Esterase,Urine Negative (Negative); Nitrite,Urine Negative (Negative); Protein,Urine Trace mg/dL (Neg-Trace); Specific Gravity,Urine 1.012 (1.010-1.025); Urobilinogen,Urine Normal (Normal)
[2022-06-08] MEDS ORDERED: Acetaminophen 325 MG TABLET PO PRN (04:59)
[2022-06-08] MEDS ORDERED: Ondansetron 4 MG/2 ML VIAL IVP PRN (04:59)
[2022-06-08] MEDS ORDERED: Naloxone 0.4 MG/ML INJ IVP PRN (04:59)
[2022-06-08] MEDS ORDERED: Azithromycin 500 MG in 0.9 % Sodium Chloride 250 ML IVPB SCH ×2 (06:00→18:00)
[2022-06-08] MEDS ORDERED: Remdesivir 200 MG in 0.9 % Sodium Chloride 100 ML IVPB ONE (08:00)
[2022-06-08 09:10] LABS: Fibrinogen 291 mg/dL (169-393)
[2022-06-08 09:13] LABS: D-Dimer 1048 ng/mLFEU (0-500)
[2022-06-08] MEDS: *HR* Enoxaparin 40 MG/0.4 ML SYRINGE SQ SCH (09:15)
[2022-06-08 09:26] LABS: Lactate Dehydrogenase 173 Units/L (140-271)
[2022-06-08] MEDS: cefTRIAXone 1,000 MG in 0.9 % Sodium Chloride Mini Bag 100 ML IVPB SCH (09:27)
[2022-06-08 09:36] LABS: Ferritin 112 ng/mL (10-120)
[2022-06-08 10:29] LABS: Estimated Average Glucose 120 mg/dl; Hemoglobin A1C 5.8 %
[2022-06-09 02:20] LABS: Basophils % 0.4 %; Eosinophils # 0.2 K/mcL (0.0-0.6); Eosinophils % 2.8 %; Hematocrit 34.1 % (35.3-44.9); Immature Granulocytes % 0.2 % (0-4); Lymphocytes # 0.7 K/mcL (0.6-4.6); Lymphocytes % 12.3 %; Mean Corpuscular HGB Conc 31.4 g/dL (31.6-35.5); Mean Corpuscular Hemoglobin 29.3 pg (28.0-33.3); Mean Corpuscular Volume 93.4 fL (83.0-100.0); Mean Platelet Volume 12.1 fL (9.4-12.4); Monocytes # 0.4 K/mcL (0.0-1.3); Monocytes % 7.3 %; Neutrophils # 4.2 K/mcL (1.6-8.9); Platelet Count 140 K/mcL (140-400); Red Blood Count 3.65 M/mcL (3.82-4.97); Red Cell Distribution Width 14.2 % (11.5-14.5); White Blood Count 5.5 K/mcL (4.3-11.1)
[2022-06-09 02:21] LABS: Hemoglobin 10.7 g/dL (11.5-15.4)
[2022-06-09 02:48] LABS: Albumin 3.7 g/dL (3.5-5.7); Albumin/Globulin Ratio 1.3 (1.1-2.2); Bilirubin,Indirect 0.2 mg/dL (0.0-1.0); Bilirubin,Total 0.2 mg/dL (0.3-1.0); Calcium 7.9 mg/dL (8.6-10.3); Globulin 2.8 g/dL (2.4-3.5); Magnesium 1.9 mg/dL (1.6-2.6); Phosphorous 2.6 mg/dL (2.7-4.5); Potassium 4.3 mEq/L (3.5-5.1); Total Protein 6.5 g/dL (6.4-8.9)
[2022-06-09] MEDS ORDERED: Remdesivir 100 MG in 0.9 % Sodium Chloride 100 ML IVPB SCH (08:00)
[2022-06-09] MEDS: *HR* Enoxaparin 40 MG/0.4 ML SYRINGE SQ SCH (09:30)
[2022-06-09] MEDS: cefTRIAXone 1,000 MG in 0.9 % Sodium Chloride Mini Bag 100 ML IVPB SCH (10:55)
[2022-06-09 12:02] VITALS: BP 132/74; PULSE 83; TEMP 98.4
[2022-06-09 12:09] VITALS: O2SAT 99
== END 2022-06-09 13:35 | disposition home or self-care (01) | DRG 871 ==
LOC: EMEROOARM 23:30 → 3NENU 23:30
PROVIDERS: ADMIT Internal Medicine; ATTEND Internal Medicine